=== PATIENT | female | born 1985 | race Caucasian/White ===

== ENCOUNTER 2018-09-08 14:04 | Emergency (ER) | payer OTHER ==
[~2018-09-08] VITALS: Ht 162.6 cm; Wt 90.0 kg
[2018-09-08 14:10] VITALS: TEMP 99.2
[2018-09-08] MEDS ORDERED: NEXIUM 20MG20 MG PO (14:24)
[2018-09-08 16:27] VITALS: BP 120/76; PULSE 82
== END 2018-09-08 16:27 | disposition home or self-care (01) ==
LOC: COL.ER 14:04
DX: K59.00 Constipation, unspecified (principal); F17.210 Nicotine dependence, cigarettes, uncomplicated